=== PATIENT | female | born 1985 ===

== ENCOUNTER 2018-01-13 08:03 | Inpatient (IN) | payer OTHER ==
[~2018-01-13] VITALS: Ht 157.5 cm; Wt 3.6 kg
[2018-01-13] MEDS ORDERED: PROFERRIN-FORT1 EACH PO (10:06)
[2018-01-13] MEDS ORDERED: PRENATAL FORMU1 EAC2 PO (10:06)
[2018-01-13] MEDS ORDERED: VISTARIL25 MG PO (10:08)
[2018-01-16] MEDS ORDERED: SURFAK240 M1 PO (12:41)
[2018-01-16] MEDS ORDERED: PERCOCET 5-3251 EACH PO (12:41)
== END 2018-01-16 15:38 | DRG 765 ==
LOC: OB/GYN 08:03 → LDR 08:03 → OB/GYN 23:18
PROVIDERS: Specialist
PROC: 0UB70ZZ Excision of Bilateral Fallopian Tubes, Open Approach (ICD-10-PCS; 2018-01-13)
PROC: 0DQ80ZZ Repair Small Intestine, Open Approach (ICD-10-PCS; 2018-01-13)
PROC: 4A1HXCZ Monitoring of Products of Conception, Cardiac Rate, External Approach (ICD-10-PCS; 2018-01-13)
PROC: 4A033R1 Measurement of Arterial Saturation, Peripheral, Percutaneous Approach (ICD-10-PCS; 2018-01-13)
PROC: 10D00Z1 Extraction of Products of Conception, Low, Open Approach (ICD-10-PCS; principal; 2018-01-13 18:00)
DX: O34.211 Maternal care for low transverse scar from previous cesarean delivery (principal); K91.72 Accidental puncture and laceration of a digestive system organ or structure during other procedure; O71.89 Other specified obstetric trauma; O75.82 Onset (spontaneous) of labor after 37 completed weeks of gestation but before 39 completed weeks gestation, with delivery by (planned) cesarean section; Z3A.38 38 weeks gestation of pregnancy; Z37.0 Single live birth; Z30.2 Encounter for sterilization